=== PATIENT | female | born 1975 | race Caucasian/White ===

== ENCOUNTER → 2016-08-02 | Outpatient (CLI) | payer OTHER ==
--- NOTE | 2016-08-03 15:14 | US ---
EXAMINATION TYPE: US pelvic complete DATE OF EXAM: 08/02/2016 3:58 PM COMPARISON: NONE CLINICAL HISTORY: R10.2 Pelvic pain, N92.1 Metrorrhagia. Patient stated US being done due to patient' s HX of chronic anemia TECHNIQUE: Transabdominal (TA) Date of LMP: 07/08/2016 EXAM MEASUREMENTS: Uterus: 9.2 x7.5 x 4.1 cm Endometrial Stripe: 0.4 cm Right Ovary: 2.5 x 2.8 x 1.0 cm Left Ovary: 3.5x 2.3 x 1.2 cm 1. Uterus: Anteverted Nabothian cyst in CX = 0.8 x 0.8 x 0.6cm; couple of uterine fibroids noted a s hypoechoic oval masses at periphery of uterus: at right lateral mid uterus = 0.9 x 0.9 x 0.6cm and left upper periphery = 0.9 x 0.9 x 0.7cm 2. Endometrium: wnl 3. Right Ovary: multiple small follicles 4. Left Ovary: multiple small follicles 5. Bilateral Adnexa: wnl 6. Posterior cul-de-sac: wnl Urinary bladder is sonolucent. Posterior wall is normal. IMPRESSION: 1. Normal pelvic ultrasound
== END | disposition home or self-care (01) ==
LOC: RADUSWWP 15:17
PROVIDERS: ATTEND Family Medicine
DX: N92.1 Excessive and frequent menstruation with irregular cycle (principal); R10.2 Pelvic and perineal pain
CPT/HCPCS: 76856